=== PATIENT | male | born 1960 | race Caucasian/White ===

== ENCOUNTER 2020-02-28 17:27 | Emergency (ER) | payer OTHER ==
[~2020-02-28] VITALS: Ht 167.6 cm; Wt 77.1 kg
[~2020-02-28 17:27] MED LIST: BENZTROPINE PO; BUSPIRONE HCL10 MG PO; HALDOL DECA100 MG/ML PO; LANSOPRAZOLE30 M2 PO; NOR10T PO; PEPCID20 MG PO
[2020-02-28 17:49] VITALS: Ht 167.6 cm; Wt 77.1 kg
[2020-02-28 20:42] VITALS: BP 127/76
== END 2020-02-29 05:56 | disposition home or self-care (01) ==
LOC: ED 17:27
DX: T51.91XA Toxic effect of unspecified alcohol, accidental (unintentional), initial encounter (principal); L89.322 Pressure ulcer of left buttock, stage 2; Y92.89 Other specified places as the place of occurrence of the external cause